=== PATIENT | female | born 1970 | race African-American/Black ===

== ENCOUNTER 2016-11-21 11:16 | Day surgery (SDC) | payer OTHER ==
[2016-11-17 13:17] VITALS: BMI 33.6
[~2016-11-21 11:16] MED LIST: LEVOFLOXACIN 500 MG PREMIX BAG IVPB ONE
[2016-11-21] MEDS ORDERED: ONDANSETRON 4 MG/2 ML VIAL IVPUSH PRN (12:52)
[2016-11-21] MEDS ORDERED: PROMETHAZINE HCL 25 MG/1 ML VIAL IVPUSH PRN (12:52)
[2016-11-21] MEDS ORDERED: LEVOFLOXACIN 500 MG IVPB 100 ML IVPB ONE (13:00)
[2016-11-21] MEDS ORDERED: LACTATED RINGERS SOLUTION 1,000 ML IV SCH (13:00)
--- NOTE | 2016-11-21 13:37 | OP ---
Operative Note - Note: Operative Date: 11/21/16 Pre-Operative Diagnosis: right renal stone Operation: right eswl Findings: right 10mm lower pole stone Post-Operative Diagnosis: Same as Pre-op Surgeon: Franco Valdes Anesthesia: General Operative Report Dictated: Yes
[2016-11-21 14:18] VITALS: TEMP 97.8
[2016-11-21 15:31] VITALS: BP 114/62; PULSE 64
== END 2016-11-21 15:30 | disposition home or self-care (01) ==
LOC: JASU-SURG 11:16
PROVIDERS: ATTEND Urology
PROC: 0TF3XZZ Fragmentation in Right Kidney Pelvis, External Approach (ICD-10-PCS; principal; 2016-11-21 12:30)
DX: N20.0 Calculus of kidney (principal)
CPT/HCPCS: 84703; 94760

== ENCOUNTER 2018-01-01 10:43 | Day surgery (SDC) | payer OTHER ==
[2017-12-29 13:33] VITALS: BMI 49.6
[2018-01-01] MEDS ORDERED: MIDAZOLAM HCL 2 MG/2 ML SINGLE DOSE VIAL ONE (12:59)
[2018-01-01] MEDS ORDERED: KETOROLAC TROMETHAMINE 30 MG/1 ML VIAL ONE (13:40)
[2018-01-01] MEDS ORDERED: KETAMINE HCL 200 MG/20 ML VIAL ONE (13:40)
--- NOTE | 2018-01-01 14:00 | OP ---
Operative Note - Note: Operative Date: 01/01/18 Pre-Operative Diagnosis: Right kidney stone Operation: Right ESWL Findings: 8mm Right kidney lower pole stone Post-Operative Diagnosis: Same as Pre-op Surgeon: Franco Valdes Anesthesia: Fractional
[2018-01-01 14:34] VITALS: TEMP 97.8
[2018-01-01 15:27] VITALS: BP 110/71; PULSE 64
--- NOTE | 2018-01-02 09:06 | OP ---
DATE OF OPERATION: 01/01/2018 PREOPERATIVE DIAGNOSIS: Right renal stone. POSTOPERATIVE DIAGNOSIS: Right renal stone. PROCEDURE: Right extracorporeal shock wave lithotripsy. ATTENDING: Toni Bragg MD ANESTHESIA: General. OPERATION: The patient was brought into the operating room, placed in supine position on the operating room table. Ultrasonography and fluoroscopy were performed. An 8-mm right lower-pole stone was identified. Anesthesia was then administered, and the patient was given preoperative antibiotics. Then, 2500 impulses at 20 joules of power were administered to the stone. Excellent fragmentation of the stone was noted. No complications were noted. The patient tolerated the procedure very well. TONI BRAGG M.D. [id number]
== END 2018-01-01 16:01 | disposition home or self-care (01) ==
LOC: JASU-SURG 10:43
PROVIDERS: ATTEND Urology
PROC: 0TF3XZZ Fragmentation in Right Kidney Pelvis, External Approach (ICD-10-PCS; principal; 2018-01-01 12:30)
DX: N20.0 Calculus of kidney (principal)
CPT/HCPCS: 36415; 84703

== ENCOUNTER 2018-09-24 06:27 | Day surgery (SDC) | payer OTHER ==
[2018-09-20 17:44] VITALS: BMI 32.2
[2018-09-24] MEDS ORDERED: LIDOCAINE HCL/PF 2% SDV 5ML VIAL ONE (07:56)
[2018-09-24] MEDS ORDERED: KETOROLAC TROMETHAMINE 30 MG/1 ML VIAL ONE (07:56)
[2018-09-24] MEDS ORDERED: MIDAZOLAM HCL 2 MG/2 ML SINGLE DOSE VIAL ONE (07:57)
[2018-09-24] MEDS ORDERED: PROPOFOL 20 ML ONE ×2 (07:57)
--- NOTE | 2018-09-24 08:41 | OP ---
Operative Note - Note: Operative Date: 09/24/18 Pre-Operative Diagnosis: Right renal stone Operation: Right ESWL Surgeon: Franco Valdes Anesthesia: Fractional Estimated Blood Loss (mls): 0 Drains, Volume Out (mls): 0
[2018-09-24] MEDS ORDERED: ACETAMINOPHEN 500 MG TABLET (FP) PO PRN (08:55)
[2018-09-24] MEDS ORDERED: ONDANSETRON 4 MG/2 ML VIAL IVPUSH PRN (08:55)
[2018-09-24] MEDS ORDERED: oxyCODONE HCL 5 MG TABLET PO PRN (08:55)
[2018-09-24] MEDS ORDERED: LACTATED RINGERS SOLUTION 1,000 ML IV SCH (09:00)
[2018-09-24 12:02] VITALS: BP 120/72; TEMP 98.1
[2018-09-24 12:07] VITALS: PULSE 73
--- NOTE | 2018-09-24 21:17 | OP ---
DATE OF OPERATION: 09/24/2018 PREOPERATIVE DIAGNOSIS: Right renal stone. POSTOPERATIVE DIAGNOSIS: Right renal stone. PROCEDURE: Right extracorporeal shock-wave lithotripsy. ATTENDING: Toni Bragg MD ANESTHESIA: Fractional. DESCRIPTION OF PROCEDURE: The patient was brought in the operating room and placed in supine position on the operating room table. Ultrasonography and fluoroscopy were performed. An 8-mm right lower pole stone was identified. At this point, shock-wave lithotripsy was started after anesthesia and preoperative antibiotics had been administered. Then 3000 impulses at 20 J of power were administered to the 8-mm stone. Excellent fragmentation was noted on real time ultrasonography and fluoroscopy. The patient tolerated the procedure very well. DISPOSITION: To the recovery room. TONI BRAGG M.D. [id number]
== END 2018-09-24 12:07 | disposition home or self-care (01) ==
LOC: JASU-SURG 06:27
PROVIDERS: ATTEND Urology
PROC: 0TF3XZZ Fragmentation in Right Kidney Pelvis, External Approach (ICD-10-PCS; principal; 2018-09-24 08:45)
DX: N20.0 Calculus of kidney (principal)
CPT/HCPCS: 84703; 94760